=== PATIENT | female | born 1950 | race Caucasian/White ===

== ENCOUNTER 2023-06-08 08:49 | Emergency (ER) | payer MEDICARE, SELFPAY ==
[2023-06-08] VITALS (12 sets, daily range): BP systolic 117–126; BP diastolic 62–79; PULSE 80–82; RESP 16–28; TEMP 36.8; O2SAT 95–100; BMI 19.7
--- NOTE | 2023-06-08 08:55 | DI.RAD.S_ITS ---
PROCEDURE: XR CHEST 1V INDICATIONS: Shortness of breath TECHNIQUE: One view of the chest was acquired. COMPARISON: None. FINDINGS: Surgical changes and devices: Left shoulder arthroplasty. Median sternotomy. Left-sided pacer. Lungs and pleura: Mild diffuse reticulonodular pulmonary opacity. No pleural effusions or pneumothorax. Mediastinum: Mediastinal contours appear normal. Heart size is normal. Bones and chest wall: No suspicious bony lesions. Overlying soft tissues appear unremarkable. IMPRESSION: Mild edema versus atypical pneumonia. Dictated by: Chang Oropeza M.D. on 06/08/2023 at 9:19 Approved by: Chang Oropeza M.D. on 06/08/2023 at 9:19
--- NOTE | 2023-06-08 09:01 | ED_ITS ---
HPI - General Adult General Chief complaint: Shortness of Breath/Dyspnea Stated complaint: hard time breathing Time Seen by Provider: 06/08/23 08:55 Source: patient Mode of arrival: Ambulatory Limitations: no limitations History of Present Illness HPI narrative: 72-year-old female. Is a smoker. States she does have history of CHF. Potentially has a history of COPD. Not on home oxygen. Here for evaluation of 3 days of shortness of breath. No fevers. No cough. No sore throat. No chest pain but does have some upper back pain. No abdominal pain. She is unvaccinated. Did have some swelling last week but took a Lasix and she thinks that that has resolved. Related Data Previous Rx's Medication Instructions Recorded albuterol sulfate 90 mcg/actuation 2 puff inhalation Q4-6H PRN 06/08/23 aerosol inhaler (Proventil HFA) shortness of breath or wheezing #8.5 grams azithromycin 250 mg tablet See Rx Instructions PO .COMPLEX #6 06/08/23 tabs Allergies Allergy/AdvReac Type Severity Reaction Status Date / Time No Known Drug Allergies Allergy Verified 06/08/23 09:08 Review of Systems Constitutional Constitutional: Reports system reviewed and no additional complaints, except as documented Cardiovascular Cardiovascular: Reports system reviewed and no additional complaints, except as documented Respiratory Respiratory: Reports system reviewed and no additional complaints, except as documented Integumentary/Breasts Skin/Breast: Reports system reviewed and no additional complaints, except as documented Neurologic Neurologic: Reports system reviewed and no additional complaints, except as documented Hematologic/Lymphatic On Anticoagulants: No Patient History Medical History (Updated 06/08/23 @ 11:44 by Wyatt Spencer DO) Atrial fibrillation CHF (congestive heart failure) Social History Smoking Status: Current every day smoker Exam Initial Vital Signs Initial Vital Signs: Vital Signs Pulse Rate 82 06/08/23 09:00 Respiratory Rate 16 06/08/23 09:00 Blood Pressure 123/62 06/08/23 09:00 Pulse Oximetry 98 06/08/23 09:00 Oxygen Delivery Method Room Air 06/08/23 09:00 Const General: cooperative, comfortable and No ill appearing HENMT Head: normal to inspection and normocephalic Resp Effort & Inspection: normal respiratory effort, not labored and no respiratory distress Auscultation: clear to auscultation bilaterally Cardio Rate: regular rate GI Inspection: non-distended Skin General: no rashes or lesions noted Neuro General: patient alert, patient awake and moves all extremities Extrem General: capillary refill normal Course Orders Ordered: ED Orders 06/08/23 08:55 XR chest 1V Stat EKG-12 Lead Stat RT Consult Eval and Treat Now 06/08/23 09:16 Covid-19 + FLU A/B + RSV - PCR Stat 06/08/23 09:17 Complete Blood Count AUTO DIFF Stat Comprehensive Metabolic Panel Stat Lipase Stat Magnesium Stat NT-proBNP (BNP-Adult 18+) Stat Troponin & CK Cardiac Panel Stat Discontinued Medications Albuterol (Albuterol 2.5 Mg/3 Ml Neb (Adult)) 2.5 mg INH NOW ONE Stop: 06/08/23 11:05 Last Admin: 06/08/23 11:24 Dose: 2.5 mg Documented By: SAT Furosemide (Furosemide 40 Mg/4 Ml Vial) 40 mg IV NOW ONE Stop: 06/08/23 11:05 Last Admin: 06/08/23 11:25 Dose: 40 mg Documented By: ST Vital Signs Vital signs: Vital Signs - 8 hr 06/08/23 09:00 06/08/23 09:13 06/08/23 09:02 Temperature 98.3 F Pulse Rate 82 80 Respiratory Rate 16 28 H Blood Pressure 123/62 Pulse Oximetry 98 100 Oxygen Delivery Method Room Air 06/08/23 09:30 06/08/23 10:00 06/08/23 11:25 Temperature Pulse Rate 80 80 80 Respiratory Rate 21 24 20 Blood Pressure Pulse Oximetry 100 100 100 Oxygen Delivery Method Room Air Medical Decision Making Lab Data 06/08/23 09:17 06/08/23 09:17 Labs: Lab Results 06/08/23 06/08/23 06/08/23 Range/Units 09:16 09:17 09:17 WBC 6.9 (4.5-11.0) X10^3/uL RBC 4.16 (4.0-5.2) X10^6/uL Hgb 11.0 L (12.0-16.0) g/dL Hct 33.6 L (36-46) % MCV 80.7 (80-100) fL MCH 26.4 (26-34) PG MCHC 32.6 (30-36) % RDW 16.9 H (11.6-14.8) % Plt Count 195 (150-400) X10^3/uL Neut % (Auto) 66.5 (50-75) % Lymph % (Auto) 20.2 L (25-40) % [place] % (Auto) 9.4 (3-14) % Eos % (Auto) 2.6 (2-4) % Baso % (Auto) 1.3 (0-2) % Neut # (Auto) 4600 (1362-0296) /uL Lymph # (Auto) 1400 (3077-8351) /uL [place] # (Auto) 600 (0-900) /uL Eos # (Auto) 200 (0-450) /uL Baso # (Auto) 100 (0-100) /uL Sodium 138 (137-145) mmol/L Potassium 3.3 L (3.4-5.1) mmol/L Chloride 104 (98-107) mmol/L Carbon Dioxide 25 (22-32) mmol/L BUN 20 H (7-17) mg/dL Creatinine 0.97 (0.52-1.04) mg/dL Estimated GFR > 60 (>60) mL/min BUN/Creatinine Ratio 20.6 (6-22) Glucose 161 H (80-110) mg/dL Calcium 9.4 (8.4-10.2) mg/dL Magnesium 2.0 (1.6-2.3) mg/dL Total Bilirubin 1.2 (0.2-1.3) mg/dL AST 35 (14-36) IU/L ALT 20 (<35) IU/L Alkaline Phosphatase 77 (38-126) U/L Total Creatine Kinase (30-135) U/L Troponin I (0.01-0.034) ng/mL NT-Pro-B Natriuret Pep (<125) pg/mL Total Protein 6.7 (6.3-8.2) g/dL Albumin 3.8 (3.5-5.0) g/dL Globulin 2.9 (1.7-4.1) g/dL Albumin/Globulin Ratio 1.3 (1.0-2.8) Lipase 148 (23-300) U/L SARS-CoV-2 (PCR) Negative (Negative) Influenza A (RT-PCR) Flu a negative (NEGATIVE) Influenza B (RT-PCR) Flu b negative (NEGATIVE) RSV (PCR) Negative (Negative) 06/08/23 Range/Units 09:17 WBC (4.5-11.0) X10^3/uL RBC (4.0-5.2) X10^6/uL Hgb (12.0-16.0) g/dL Hct (36-46) % MCV (80-100) fL MCH (26-34) PG MCHC (30-36) % RDW (11.6-14.8) % Plt Count (150-400) X10^3/uL Neut % (Auto) (50-75) % Lymph % (Auto) (25-40) % [place] % (Auto) (3-14) % Eos % (Auto) (2-4) % Baso % (Auto) (0-2) % Neut # (Auto) (3562-4067) /uL Lymph # (Auto) (1719-7208) /uL [place] # (Auto) (0-900) /uL Eos # (Auto) (0-450) /uL Baso # (Auto) (0-100) /uL Sodium (137-145) mmol/L Potassium (3.4-5.1) mmol/L Chloride (98-107) mmol/L Carbon Dioxide (22-32) mmol/L BUN (7-17) mg/dL Creatinine (0.52-1.04) mg/dL Estimated GFR (>60) mL/min BUN/Creatinine Ratio (6-22) Glucose (80-110) mg/dL Calcium (8.4-10.2) mg/dL Magnesium (1.6-2.3) mg/dL Total Bilirubin (0.2-1.3) mg/dL AST (14-36) IU/L ALT (<35) IU/L Alkaline Phosphatase (38-126) U/L Total Creatine Kinase 35 (30-135) U/L Troponin I 0.019 (0.01-0.034) ng/mL NT-Pro-B Natriuret Pep 9540 H (<125) pg/mL Total Protein (6.3-8.2) g/dL Albumin (3.5-5.0) g/dL Globulin (1.7-4.1) g/dL Albumin/Globulin Ratio (1.0-2.8) Lipase (23-300) U/L SARS-CoV-2 (PCR) (Negative) Influenza A (RT-PCR) (NEGATIVE) Influenza B (RT-PCR) (NEGATIVE) RSV (PCR) (Negative) Imaging Data Chest x-ray: Radiologist's Impression: PROCEDURE:? XR CHEST 1V ? INDICATIONS:? Shortness of breath ? TECHNIQUE:? One view of the chest was acquired.? ? COMPARISON:? None. ? FINDINGS:? ? Surgical changes and devices:? Left shoulder arthroplasty.? Median sternotomy.? Left-sided pacer. ? Lungs and pleura:? Mild diffuse reticulonodular pulmonary opacity.? No pleural effusions or pneumothorax.? ? Mediastinum:? Mediastinal contours appear normal.? Heart size is normal.? ? Bones and chest wall:? No suspicious bony lesions.? Overlying soft tissues appear unremarkable.? ? ? IMPRESSION:? Mild edema versus atypical pneumonia. ECG Data Attestation: I personally reviewed and interpreted this ECG as follows: Interpretation: Sinus rhythm Ventricular rate 80 QRS [address] T wave changes MDM Narrative Medical decision making narrative: Chest x-ray does show pneumonia. Her BNP is also elevated. She is taking her furosemide every couple days because she states it ?makes my kidneys hurt? she also feels somewhat better after the albuterol inhaler. Her COVID was negative. Plan will be to start her on antibiotics. Will have her take her Lasix at home on a daily basis for the next couple days and refill her albuterol inhaler. She was given return precautions. She expressed understanding and agreement. Discharge Plan Departure Patient Disposition: Home Clinical Impression: Pneumonia, CHF (congestive heart failure) Instructions: DI for Heart Failure, DI for Pneumonia -- Adult Activity Restrictions/Additional Instructions: I do recommend that you take your Lasix/furosemide on a daily basis for the next couple days. Also take the antibiotics as directed. Contact your primary doctor for a follow-up. Return to the emergency department for new or worsening symptoms. Prescriptions: New albuterol sulfate [Proventil HFA] 90 mcg/actuation HFA aerosol inhaler 2 puff inhalation Q4-6H PRN (Reason: shortness of breath or wheezing) Qty: 8.5 0RF azithromycin 250 mg tablet See Rx Instructions .ROUTE .COMPLEX Qty: 6 0RF Rx Instructions: For 250 mg dose pack: take 500 mg today (day 1), then 250 mg for 4 days (days 2-5) Referrals: Archie Torres DO [Primary Care Provider] - Stand Alone Forms: Patient Portal/API
[2023-06-08 09:30] LABS: Add Manual Diff / Slide Review NO; Basophils Absolute Auto 100 /uL (0-100); Basophils Percent Auto 1.3 % (0-2); Eosinophils Absolute Auto 200 /uL (0-450); Eosinophils Percent Auto 2.6 % (2-4); Hematocrit 33.6 % (36-46); Lymphocytes Absolute Auto 1400 /uL (1100-4500); Lymphocytes Percent Auto 20.2 % (25-40); Mean Corpuscular HGB Conc 32.6 % (30-36); Mean Corpuscular Hemoglobin 26.4 PG (26-34); Mean Corpuscular Volume 80.7 fL (80-100); Monocytes Absolute Auto 600 /uL (0-900); Monocytes Percent Auto 9.4 % (3-14); Neutrophils Absolute Auto 4600 /uL (1500-7000); Neutrophils Percent Auto 66.5 % (50-75); Platelet Count 195 X10^3/uL (150-400); Red Blood Cell Count 4.16 X10^6/uL (4.0-5.2); Red Cell Distribution Width 16.9 % (11.6-14.8); White Blood Cell Count 6.9 X10^3/uL (4.5-11.0)
[2023-06-08 09:48] LABS: Creatine Kinase 35 U/L (30-135)
[2023-06-08 09:51] LABS: Alanine Aminotransferase 20 IU/L (<35); Albumin 3.8 g/dL (3.5-5.0); Albumin Globulin Ratio 1.3 (1.0-2.8); Alkaline Phosphatase 77 U/L (38-126); Aspartate Aminotransferase 35 IU/L (14-36); BUN Creatinine Ratio 20.6 (6-22); Bilirubin Total 1.2 mg/dL (0.2-1.3); Blood Urea Nitrogen 20 mg/dL (7-17); Calcium 9.4 mg/dL (8.4-10.2); Carbon Dioxide 25 mmol/L (22-32); Chloride 104 mmol/L (98-107); Estimated Glomerular Filt Rate > 60 mL/min (>60); Globulin 2.9 g/dL (1.7-4.1); Glucose 161 mg/dL (80-110); HEMOLYSIS < 15 (0-50); Lipase 148 U/L (23-300); Potassium 3.3 mmol/L (3.4-5.1); Sodium 138 mmol/L (137-145); Total Protein 6.7 g/dL (6.3-8.2)
[2023-06-08 10:01] LABS: NT-proBNP (BNP-Adult 18+) 9540 pg/mL (<125); Troponin I 0.019 ng/mL (0.01-0.034)
[2023-06-08 11:04] LABS: COVID-19 CEPHEID 4-PLEX PCR Negative (Negative); Influenza A - CEPHEID Flu A NEGATIVE (NEGATIVE); Influenza B - CEPHEID Flu B NEGATIVE (NEGATIVE); Respiratory Syncytial Virus Negative (Negative)
[2023-06-08] MEDS: ALBUTEROL 2.5 MG/3 ML NEB (ADULT) INH (11:24)
[2023-06-08] MEDS: FUROSEMIDE 40 MG/4 ML VIAL IV (11:25)
== END 2023-06-08 12:27 | disposition home or self-care (01) ==
PROVIDERS: Emergency Provider Emergency Medicine; PCP Internal Medicine
DX: J18.9 Pneumonia, unspecified organism (principal); I50.9 Heart failure, unspecified; M54.6 Pain in thoracic spine; Z79.01 Long term (current) use of anticoagulants; Z20.822 Contact with and (suspected) exposure to COVID-19
CPT/HCPCS: 0241U; 71045; 80053; 82550; 83690; 83735; 83880; 84484; 85025; 93005; 94640; 96374; 99284; J1940; J7613

== ENCOUNTER 2023-07-05 10:44 | Emergency (ER) | payer MEDICARE, MEDICAID, SELFPAY ==
[2023-07-05] VITALS (7 sets, daily range): BP systolic 134–145; BP diastolic 82–87; PULSE 80–88; RESP 16–222; TEMP 36.8; O2SAT 95–100; BMI 22.3
--- NOTE | 2023-07-05 10:57 | DI.RAD.S_ITS ---
PROCEDURE: XR CHEST 1V INDICATIONS: Short of breath TECHNIQUE: One view of the chest was acquired. COMPARISON: [facility], CR, XR CHEST 1V, 06/08/2023, 9:01. FINDINGS: Surgical changes and devices: A pacer device is seen. The leads are seen in stable positions. Sternotomy wires are seen. Left shoulder arthroplasty hardware is seen. Lungs and pleura: Low lung volumes are noted. This causes a crowded appearance to the lung markings and limits evaluation. Generalized interstitial prominence can be seen. There are small bilateral pleural effusions, left larger than right. Mediastinum: Mediastinal contours appear normal. Heart size is mildly to moderately enlarged. Atherosclerotic calcification of the aortic arch is noted. Bones and chest wall: No suspicious bony lesions. Age-appropriate bony degenerative changes are seen. Overlying soft tissues appear unremarkable. IMPRESSION: Cardiomegaly with pulmonary interstitial prominence and pleural effusions. CHF is suspected. Postoperative and degenerative changes are seen. Dictated by: Jac Barriga M.D. on 07/05/2023 at 10:28 Approved by: Jac Barriga M.D. on 07/05/2023 at 10:29
--- NOTE | 2023-07-05 10:58 | ED.GENADULT ---
HPI - General Adult General Chief complaint: Shortness of Breath/Dyspnea Stated complaint: Difficulty Breathing, weak, dizzy Time Seen by Provider: 07/05/23 10:57 History of Present Illness HPI narrative: 73-year-old female smoker with history of COPD, AFib, pacemaker placed a few months ago in [place], congestive heart failure, hypertension, hyperlipidemia presents with a family friend and a chief complaint of worsening shortness of breath over the past few days and worsening generalized weakness. She states that she is short of breath with exertion and also with lying flat. She denies much in the way of cough and has had no fever or chills. She is not dizzy but is generally weak. She denies nausea or vomiting, she admits to having a poor appetite and just generally feels unwell. She denies abdominal pain or diarrhea. She has no urinary complaints such as dysuria, frequency or urgency. She lives at home with family and does not routinely use oxygen. She denies any weight gain or lower extremity pain, redness or swelling. Related Data Previous Rx's Medication Instructions Recorded albuterol sulfate 90 mcg/actuation 2 puff inhalation Q4-6H PRN 06/08/23 aerosol inhaler (Proventil HFA) shortness of breath or wheezing #8.5 grams azithromycin 250 mg tablet See Rx Instructions PO .COMPLEX #6 06/08/23 tabs cephalexin 500 mg capsule 500 mg PO Q6H 7 days #28 caps 07/05/23 furosemide 40 mg tablet (Lasix) 40 mg PO DAILY #5 tabs 07/05/23 prednisone 20 mg tablet 20 mg PO DAILY #5 tabs 07/05/23 Allergies Allergy/AdvReac Type Severity Reaction Status Date / Time trazodone Allergy Suicidal Verified 07/05/23 10:59 ideation SSRI Allergy Suicidal Uncoded 07/05/23 10:59 Ideation Review of Systems Review of Systems Narrative: GENERAL: D see HPI HEENT: Denies sinus pain, ear pain, sore throat, difficulty swallowing, dizziness. RESPIRATORY: See HPI CARDIOVASCULAR: See HPI GASTROINTESTINAL: Denies nausea, vomiting, abdominal pain, diarrhea, constipation, melena. : Denies dysuria, frequency, incontinence, hematuria, urinary retention. MUSCULOSKELETAL: denies weakness, joint pain, or bony pain SKIN: Denies rash, skin lesions, or other NEUROLOGIC: Denies weakness, headache, numbness, change in speech, confusion, seizures, incoordination. PSYCHIATRIC: No concerning psychosocial issues. 12 point review of systems is negative except for those stated above Patient History Medical History CHF (congestive heart failure) Atrial fibrillation Social History Smoking Status: Current every day smoker Smoking Status: Current every day smoker tobacco type: cigarettes alcohol intake frequency: 0-2 drinks per day Substance Use Type: does not use Exam Narrative Exam Narrative: GENERAL: [73] year old patient appears older than stated age. Significantly weak, requires assistance getting from wheelchair to cart. HEAD: Atraumatic. Normocephalic. EYES: Pupils equal round and reactive. Extraocular motions intact. No scleral icterus. No injection or drainage. ENT: Dry mucous membranes Nose without bleeding, purulent drainage. Throat without erythema, tonsillar hypertrophy or exudate. Airway patent. NECK: Trachea midline. Non tender CARDIOVASCULAR: Regular rate and rhythm without murmurs, gallops, or rubs. RESPIRATORY: Decreased lung sounds throughout with prolonged expiratory phase, no obvious wheals, rales or rhonchi GASTROINTESTINAL: Abdomen soft, non-tender, nondistended. EXTREMITIES: No edema or joint tenderness. BACK: Nontender without deformity or crepitance. No flank tenderness. NEURO: AOx3. SKIN: No rash or erythema of visible areas Initial Vital Signs Initial Vital Signs: Vital Signs Pulse Rate 85 07/05/23 10:59 Respiratory Rate 20 07/05/23 10:59 Blood Pressure 145/87 H 07/05/23 10:59 Pulse Oximetry 98 07/05/23 10:59 Oxygen Delivery Method Room Air 07/05/23 10:59 Course Orders Ordered: ED Orders 07/05/23 10:57 Chest [XR chest 1V] Stat 07/05/23 11:33 EKG-12 Lead Stat 07/05/23 11:35 Complete Blood Count AUTO DIFF Stat Comprehensive Metabolic Panel Stat D Dimer Stat Lactate (Lactic Acid) Stat Magnesium Stat NT-proBNP (BNP-Adult 18+) Stat Procalcitonin Stat Troponin & CK Cardiac Panel Stat 07/05/23 11:45 Respiratory Panel (Film Array) Stat 07/05/23 12:05 Blood Culture Stat 07/05/23 12:07 CT angio chest PE protocol Stat 07/05/23 13:25 Urine Microscopic Stat Discontinued Medications Albuterol/Ipratropium (Albuterol/Ipratropium 3 Ml Ampul) 3 ml INH NOW ONE Stop: 07/05/23 10:58 Last Admin: 07/05/23 11:25 Dose: 3 ml Documented By: SAT Furosemide (Furosemide 40 Mg/4 Ml Vial) 40 mg IV NOW ONE Stop: 07/05/23 12:21 Last Admin: 07/05/23 13:02 Dose: 40 mg Documented By: RB Methylprednisolone (Methylprednisolone 125 Mg/2 Ml Vial) 125 mg IV NOW ONE Stop: 07/05/23 10:58 Last Admin: 07/05/23 11:48 Dose: 125 mg Documented By: RB Vital Signs Vital signs: Vital Signs - 8 hr 07/05/23 10:59 07/05/23 11:03 07/05/23 11:30 Temperature 98.2 F Pulse Rate 85 80 Respiratory Rate 20 222 H Blood Pressure 145/87 H Pulse Oximetry 98 99 Oxygen Delivery Method Room Air Room Air 07/05/23 12:19 07/05/23 13:49 Temperature Pulse Rate 80 87 Respiratory Rate 16 Blood Pressure 138/82 Pulse Oximetry 100 95 Oxygen Delivery Method Room Air Medical Decision Making Lab Data 07/05/23 11:35 07/05/23 11:35 Labs: Lab Results 07/05/23 07/05/23 Range/Units 11:35 11:45 WBC 7.3 (4.5-11.0) X10^3/uL RBC 4.52 (4.0-5.2) X10^6/uL Hgb 11.5 L (12.0-16.0) g/dL Hct 35.4 L (36-46) % MCV 78.5 L (80-100) fL MCH 25.4 L (26-34) PG MCHC 32.4 (30-36) % RDW 16.5 H (11.6-14.8) % Plt Count 210 (150-400) X10^3/uL Neut % (Auto) 63.9 (50-75) % Lymph % (Auto) 26.7 (25-40) % [place] % (Auto) 7.6 (3-14) % Eos % (Auto) 1.3 L (2-4) % Baso % (Auto) 0.5 (0-2) % Neut # (Auto) 4700 (8138-1674) /uL Lymph # (Auto) 1900 (9080-8005) /uL [place] # (Auto) 600 (0-900) /uL Eos # (Auto) 100 (0-450) /uL Baso # (Auto) 0 (0-100) /uL D-Dimer 2495 H (<500) ng/ml Sodium 137 (137-145) mmol/L Potassium 4.1 (3.4-5.1) mmol/L Chloride 105 (98-107) mmol/L Carbon Dioxide 23 (22-32) mmol/L BUN 14 (7-17) mg/dL Creatinine 1.03 (0.52-1.04) mg/dL Estimated GFR 58 L (>60) mL/min BUN/Creatinine Ratio 13.6 (6-22) Glucose 98 (80-110) mg/dL Lactate 1.6 (0.7-2.1) mmol/L Calcium 9.7 (8.4-10.2) mg/dL Magnesium 1.9 (1.6-2.3) mg/dL Total Bilirubin 0.9 (0.2-1.3) mg/dL AST 26 (14-36) IU/L ALT 13 (<35) IU/L Alkaline Phosphatase 72 (38-126) U/L Total Creatine Kinase 30 (30-135) U/L Troponin I 0.019 (0.01-0.034) ng/mL NT-Pro-B Natriuret Pep 94816 H (<125) pg/mL Total Protein 7.1 (6.3-8.2) g/dL Albumin 4.0 (3.5-5.0) g/dL Globulin 3.1 (1.7-4.1) g/dL Albumin/Globulin Ratio 1.3 (1.0-2.8) Procalcitonin 0.05 (<0.5) ng/mL Chlamy pneumoniae PCR Not detected (Not Detect) Adenovirus (PCR) Not detected (Not Detect) B.parapertussis DNA PCR Not detected (Not Detecte) Coronavirus OC43 (PCR) Not detected (Not Detect) Coronavirus HKU1 (PCR) Not detected (Not Detect) Coronavirus 229E (PCR) Not detected (Not Detect) SARS-CoV-2 (PCR) Not detected (Not Detecte) Coronavirus NL63 (PCR) Not detected (Not Detect) Human Metapneumovir PCR Not detected (Not Detect) Influenza A (H1) PCR Not detected (Not Detect) Influenza A (PCR) Not detected (Not Detect) Influenza A (H3) PCR Not detected (Not Detect) Influenza Type A (PCR) Not detected (Not Detect) Influenza Type B (PCR) Not detected (Not Detect) M. pneumoniae (PCR) Not detected (Not Detect) Parainfluenza 1 (PCR) Not detected (Not Detect) Parainfluenza 2 (PCR) Not detected (Not Detect) Parainfluenza 3 (PCR) Not detected (Not Detect) Parainfluenza 4 (PCR) Not detected (Not Detect) RSV (PCR) Not detected (Not Detect) Entero/Rhino (PCR) Not detected (Not Detect) Urine Dip Bedside Urine Glucose Negative Bedside Urine Bilirubin - Negative Bedside Urine Ketone - Negative Urine Specific [place] 1.010 Bedside Urine Occult Blood - Negative Bedside Urine pH 6.0 Bedside Urine Protein - Negative Bedside Urine Urobilinogen - Negative Bedside Urine Nitrite - Negative Bedside Urine Leukocytes +/- 15 Esterase Point of care testing: Urine Dip Bedside Urine Glucose Negative Bedside Urine Bilirubin - Negative Bedside Urine Ketone - Negative Urine Specific [place] 1.010 Bedside Urine Occult Blood - Negative Bedside Urine pH 6.0 Bedside Urine Protein - Negative Bedside Urine Urobilinogen - Negative Bedside Urine Nitrite - Negative Bedside Urine Leukocytes +/- 15 Esterase MDM Narrative Medical decision making narrative: CC: 73-year-old female with shortness of breath and fatigue Complicating co-morbidities: Age, COPD, prior stroke, AFib, recent pacemaker, recent travel, CHF Data collected from: Patient Medical records reviewed: Prior notes reviewed in our EMR Differential considered, but not limited to: Pneumonia versus COPD exacerbation versus viral upper respiratory infection versus pulmonary embolism versus cardiac ischemia versus CHF versus other Exam documented above, pertinent findings include: Fatigued, appears unwell, some increased work of breathing, no obvious abnormal lung sounds or hypoxemia. Lab Test results independently reviewed as above. Pertinent findings: Independently reviewed EKG as above Imaging studies independently reviewed: Chest CT angiogram is negative for PE, there are small bilateral pleural effusions with interstitial prominence and CHF is suspected, no signs of a focal infiltrate Treatments: DuoNeb, Solu-Medrol, Lasix Re-evaluations: Patient feels significant improvement after above-stated therapies, she is ambulatory in the department and able to make it to the bathroom, she is no longer conversationally dyspneic, no oxygen requirements Discussion: 73-year-old female presents with family in the chief complaint of worsening shortness of breath for the past few days. Multiple diagnoses considered as noted above. She has had no fever, no signs of infiltrate on imaging, pneumonia thought unlikely. She does complain of exertional dyspnea and orthopnea though she has no weight gain or lower extremity swelling, the crackles in her bases, imaging, labs are all suggestive of a CHF exacerbation. Her D-dimer is well above the cutoff, CT angiogram is performed but shows no evidence of clot. She is improved after above-stated therapies, has no oxygen requirements and is ambulatory in the department, no signs of sepsis. Antibiotics for a UTI, steroids and a few days of diuretics sent to her pharmacy of choice. Return precautions discussed Disposition: see below, along with detailed discharge instructions that have been reviewed with patient as well as indications for ED re-evaluation and additional outpatient follow up Discharge Plan Departure Patient Disposition: Home Clinical Impression: Acute exacerbation of CHF (congestive heart failure), Acute exacerbation of chronic obstructive pulmonary disease, Acute UTI Instructions: Chronic Obstructive Pulmonary Disease, DI for Heart Failure, DI for Urinary Tract Infection (UTI) Activity Restrictions/Additional Instructions: *You have been diagnosed with [acute exacerbation of CHF and acute exacerbation of COPD with mild urinary tract infection. As we discussed there is no evidence of pneumonia, your respiratory panel was negative for flu, COVID and other typical respiratory infections. CT scan suggest against the likelihood of any blood clot in your chest] *What to do: *Please continue to take your regular medications as directed. [ x] New medication prescriptions sent to your pharmacy: [[facility] ] [ ] New medication written as a paper prescription [ ] No new medications given *Please follow up with your primary care provider in 2-3 days, call for an appointment. Let them know you were seen in the Emergency Department and that we ask that you be seen in follow up. We will electronically transmit a record of today's note if your PCP is in our system *If you do not have a primary care provider please contact the [facility] Resource line at [phone]. They will ask some questions about your medical history and help get you set up with a doctor in the community. *Return to Emergency Department if you should have any new, worsening or concerning symptoms, such as [fever greater than 101 F, shaking chills, worsening pain, persistent vomiting or other bothersome symptoms] Prescriptions: New prednisone 20 mg tablet 20 mg PO DAILY Qty: 5 0RF Rx Instructions: administer with food or milk cephalexin 500 mg capsule 500 mg PO Q6H 7 Days Qty: 28 0RF furosemide [Lasix] 40 mg tablet 40 mg PO DAILY Qty: 5 0RF No Action albuterol sulfate [Proventil HFA] 90 mcg/actuation HFA aerosol inhaler 2 puff inhalation Q4-6H PRN (Reason: shortness of breath or wheezing) Qty: 8.5 0RF azithromycin 250 mg tablet See Rx Instructions .ROUTE .COMPLEX Qty: 6 0RF Rx Instructions: For 250 mg dose pack: take 500 mg today (day 1), then 250 mg for 4 days (days 2-5) Referrals: Archie Torres DO [Primary Care Provider] - Stand Alone Forms: Patient Portal/API
[2023-07-05] MEDS: ALBUTEROL/IPRATROPIUM 3 ML AMPUL INH (11:25)
[2023-07-05 11:47] LABS: Add Manual Diff / Slide Review NO; Basophils Absolute Auto 0 /uL (0-100); Basophils Percent Auto 0.5 % (0-2); Eosinophils Absolute Auto 100 /uL (0-450); Eosinophils Percent Auto 1.3 % (2-4); Hematocrit 35.4 % (36-46); Hemoglobin 11.5 g/dL (12.0-16.0); Lymphocytes Absolute Auto 1900 /uL (1100-4500); Lymphocytes Percent Auto 26.7 % (25-40); Mean Corpuscular HGB Conc 32.4 % (30-36); Mean Corpuscular Hemoglobin 25.4 PG (26-34); Mean Corpuscular Volume 78.5 fL (80-100); Monocytes Absolute Auto 600 /uL (0-900); Monocytes Percent Auto 7.6 % (3-14); Neutrophils Absolute Auto 4700 /uL (1500-7000); Neutrophils Percent Auto 63.9 % (50-75); Platelet Count 210 X10^3/uL (150-400); Red Blood Cell Count 4.52 X10^6/uL (4.0-5.2); Red Cell Distribution Width 16.5 % (11.6-14.8); White Blood Cell Count 7.3 X10^3/uL (4.5-11.0)
[2023-07-05] MEDS: methylPREDNISolone 125 MG/2 ML VIAL IV (11:48)
[2023-07-05 11:51] LABS: D Dimer 2495 ng/ml (<500)
[2023-07-05 11:54] LABS: Alanine Aminotransferase 13 IU/L (<35); Albumin Globulin Ratio 1.3 (1.0-2.8); Alkaline Phosphatase 72 U/L (38-126); Aspartate Aminotransferase 26 IU/L (14-36); BUN Creatinine Ratio 13.6 (6-22); Bilirubin Total 0.9 mg/dL (0.2-1.3); Blood Urea Nitrogen 14 mg/dL (7-17); Calcium 9.7 mg/dL (8.4-10.2); Carbon Dioxide 23 mmol/L (22-32); Chloride 105 mmol/L (98-107); Creatine Kinase 30 U/L (30-135); Estimated Glomerular Filt Rate 58 mL/min (>60); Globulin 3.1 g/dL (1.7-4.1); Glucose 98 mg/dL (80-110); HEMOLYSIS < 15 (0-50); Magnesium 1.9 mg/dL (1.6-2.3); Potassium 4.1 mmol/L (3.4-5.1); Sodium 137 mmol/L (137-145); Total Protein 7.1 g/dL (6.3-8.2)
[2023-07-05 11:55] LABS: Lactate (Lactic Acid) 1.6 mmol/L (0.7-2.1)
[2023-07-05 12:06] LABS: NT-proBNP (BNP-Adult 18+) 12500 pg/mL (<125); Troponin I 0.019 ng/mL (0.01-0.034)
--- NOTE | 2023-07-05 12:07 | DI.CT.S_ITS ---
PROCEDURE: CT ANGIO CHEST PE PROTOCOL INDICATIONS: cough, short of breath, travel, recent surgery, critical dimer TECHNIQUE: After the administration of intravenous contrast, 2 mm thick sections acquired from the pulmonary apices to the posterior costophrenic angles. 3-dimensional maximum intensity projection (MIP) coronal and sagittal reformats were then acquired through the thorax. For radiation dose reduction, the following was used: automated exposure control, adjustment of mA and/or kV according to patient size. COMPARISON: [facility], CR, XR CHEST 1V, 07/05/2023, 10:56. FINDINGS: Image quality: There is artifact associated with the metallic hardware. Pulmonary arteries: Pulmonary arteries are normal in size, and demonstrate no intraluminal filling defects to suggest central pulmonary embolism. Lungs and pleura: There is a small to moderate right-sided and a small left-sided pleural effusion. Fluid can be seen along the left oblique fissure. Presumed atelectasis can be seen overlying the pleural effusions. Mild generalized interstitial prominence can be seen. No pneumothorax is seen. Mediastinum: Heart size is moderately enlarged, without pericardial effusion. No mediastinal or hilar adenopathy. Thoracic aorta is normal in caliber and enhancement. Esophagus is normal in caliber, without hiatal hernia. Bones and chest wall: No suspicious bony lesions. Ribs and thoracic spine appear intact throughout. Left shoulder arthroplasty hardware is seen. Age-appropriate bony degenerative changes are seen. Accentuated thoracic kyphosis is seen. Thyroid gland demonstrates no significant abnormality. No axillary or supraclavicular adenopathy. There is a left-sided pacer device. Sternotomy wires are seen. Abdomen: Cholecystectomy clips are seen. There is reflux of contrast seen into the inferior vena cava and into the hepatic veins. The visualized portions of the upper abdominal structures are otherwise unremarkable for imaging technique. IMPRESSION: Negative for pulmonary embolism. Cardiomegaly with bilateral pleural effusions and interstitial prominence. CHF is suspected. Additional findings: Left shoulder arthroplasty hardware Left-sided pacer device Sternotomy change Cholecystectomy Dictated by: Jac Barriga M.D. on 07/05/2023 at 11:58 Approved by: Jac Barriga M.D. on 07/05/2023 at 12:02
[2023-07-05 12:11] LABS: Procalcitonin 0.05 ng/mL (<0.5)
--- NOTE | 2023-07-05 12:33 | PC.NURSE ---
Patient left department with seismology technical officer.
[2023-07-05 12:39] LABS: Adenovirus Not Detected (Not Detect); Coronavirus 229E Not Detected (Not Detect); Coronavirus HKU1 Not Detected (Not Detect); Coronavirus NL 63 Not Detected (Not Detect); Coronavirus OC43 Not Detected (Not Detect); Human Metapneumovirus Not Detected (Not Detect); Human Rhinovirus/Enterovirus Not Detected (Not Detect); SARS- CoV-2 Not Detected (Not Detecte)
[2023-07-05 12:40] LABS: B. parapertussis Not Detected (Not Detecte); Bordetella pertussis Not Detected (Not Detect); Chlamydophila pneumoniae Not Detected (Not Detect); Influenza A Not Detected (Not Detect); Influenza A H1 Not Detected (Not Detect); Influenza A H3 Not Detected (Not Detect); Influenza A(No subj detected) Not Detected (Not Detect); Influenza B Not Detected (Not Detect); Mycoplasma pneumoniae Not Detected (Not Detect); Parainfluenza Virus 1 Not Detected (Not Detect); Parainfluenza Virus 2 Not Detected (Not Detect); Parainfluenza Virus 3 Not Detected (Not Detect); Parainfluenza Virus 4 Not Detected (Not Detect); Respiratory Syncytial Virus Not Detected (Not Detect)
[2023-07-05] MEDS: FUROSEMIDE 40 MG/4 ML VIAL IV (13:02)
[2023-07-05 14:47] LABS: Bacteria Urine Occasional (0-1); RBC Urine 0-1/HPF (0-5/HPF); Squamous Epithelial Cell Urine 1-5 /HPF (0-5/HPF); WBC Urine 1-5/HPF (0-5/HPF)
[2023-07-05 14:48] LABS: Culture Indicated Urine Specimen Cultured
== END 2023-07-05 14:05 | disposition home or self-care (01) ==
PROVIDERS: Emergency Provider Emergency Medicine; PCP Internal Medicine
DX: I50.9 Heart failure, unspecified (principal); J44.1 Chronic obstructive pulmonary disease with (acute) exacerbation; N39.0 Urinary tract infection, site not specified
CPT/HCPCS: 36415; 71045; 71275; 80053; 81003; 81015; 82550; 83605; 83735; 83880; 84145; 84484; 85025; 85379; 87040; 87086; 87633; 93005; 94640; 96374; 96375; 99284; J1940; J2930; Q9967

== ENCOUNTER 2023-07-25 00:29 | Emergency (ER) | payer MEDICARE, MEDICAID, SELFPAY ==
[2023-07-25 00:39] VITALS: BP 128/77; PULSE 82
[2023-07-25 00:41] VITALS: BP 128/77; PULSE 79; RESP 16; TEMP 36.4; O2SAT 100; BMI 21.4
--- NOTE | 2023-07-25 00:47 | ED.EXTPRO ---
HPI - Extremity Problem General Chief complaint: Extremity Problem,Nontraumatic Stated complaint: hurting all over can't lift arm and legs Time Seen by Provider: 07/25/23 00:32 Source: patient and other Mode of arrival: Wheelchair History of Present Illness HPI Narrative: 73-year-old female who is here for evaluation of several days pain in her arms and her legs. Difficulty walking. Pain with lifting her arms. She saw her primary doctor today and was taken off of her statin as there was some concern that maybe this was causing the muscle pain. She states she is not had any improvement. She is been taking Tylenol and gabapentin It is both forearms and both of her legs. It was equal both sides. Related Data Previous Rx's Medication Instructions Recorded albuterol sulfate 90 mcg/actuation 2 puff inhalation Q4-6H PRN 06/08/23 aerosol inhaler (Proventil HFA) shortness of breath or wheezing #8.5 grams azithromycin 250 mg tablet See Rx Instructions PO .COMPLEX #6 06/08/23 tabs furosemide 40 mg tablet (Lasix) 40 mg PO DAILY #5 tabs 07/05/23 prednisone 20 mg tablet 20 mg PO DAILY #5 tabs 07/05/23 Allergies Allergy/AdvReac Type Severity Reaction Status Date / Time trazodone Allergy Suicidal Verified 07/05/23 10:59 ideation SSRI Allergy Suicidal Uncoded 07/05/23 10:59 Ideation Review of Systems Constitutional Constitutional: Reports system reviewed and no additional complaints, except as documented Musculoskeletal Musculoskeletal: Reports system reviewed and no additional complaints, except as documented Integumentary/Breasts Skin/Breast: Reports system reviewed and no additional complaints, except as documented Neurologic Neurologic: Reports system reviewed and no additional complaints, except as documented Patient History Medical History CHF (congestive heart failure) Atrial fibrillation Social History Smoking Status: Current every day smoker Smoking Status: Current every day smoker tobacco type: cigarettes alcohol intake frequency: 0-2 drinks per day Substance Use Type: does not use Exam Initial Vital Signs Initial Vital Signs: Vital Signs Pulse Rate 82 07/25/23 00:39 Blood Pressure 128/77 07/25/23 00:39 Const General: cooperative and No ill appearing Skin General: no rashes or lesions noted Neuro Speech: speech normal Extrem Other: No gross deformities. Tenderness to palpation throughout her bilateral upper and lower extremities. No lower extremity swelling. Course Orders Ordered: ED Orders 07/25/23 01:05 CK [Creatine Kinase] Stat Complete Blood Count AUTO DIFF Stat Comprehensive Metabolic Panel Stat Discontinued Medications Hydrocodone Bitart/Acetaminophen (Hydrocodone/Acet 5/325 Tablet) 1 tab PO NOW ONE Stop: 07/25/23 00:48 Last Admin: 07/25/23 01:10 Dose: 1 tab Documented By: WENDI Ketorolac Tromethamine (Ketorolac 30 Mg/Ml Vial) 30 mg IV NOW ONE Stop: 07/25/23 00:48 Last Admin: 07/25/23 01:09 Dose: 30 mg Documented By: WENDI Vital Signs Vital signs: Vital Signs - 8 hr 07/25/23 00:39 07/25/23 00:39 07/25/23 00:41 Temperature 97.5 F L Pulse Rate 82 79 Respiratory Rate 16 Blood Pressure 128/77 128/77 Pulse Oximetry 100 Oxygen Delivery Method Room Air 07/25/23 01:00 07/25/23 01:15 07/25/23 01:15 Temperature Pulse Rate 80 80 Respiratory Rate Blood Pressure 129/81 Pulse Oximetry 100 100 Oxygen Delivery Method Room Air Room Air 07/25/23 01:30 07/25/23 01:30 Temperature Pulse Rate 80 Respiratory Rate Blood Pressure 117/72 Pulse Oximetry 99 Oxygen Delivery Method Room Air MDM - Extremity (Nontraumatic) Lab Data 07/25/23 01:05 07/25/23 01:05 Labs: Lab Results 07/25/23 Range/Units 01:05 WBC 9.9 (4.5-11.0) X10^3/uL RBC 4.64 (4.0-5.2) X10^6/uL Hgb 11.5 L (12.0-16.0) g/dL Hct 35.7 L (36-46) % MCV 77.1 L (80-100) fL MCH 24.8 L (26-34) PG MCHC 32.1 (30-36) % RDW 16.8 H (11.6-14.8) % Plt Count 217 (150-400) X10^3/uL Neut % (Auto) 62.3 (50-75) % Lymph % (Auto) 24.8 L (25-40) % [place] % (Auto) 9.4 (3-14) % Eos % (Auto) 1.7 L (2-4) % Baso % (Auto) 1.8 (0-2) % Neut # (Auto) 6200 (3985-1355) /uL Lymph # (Auto) 2500 (9472-7981) /uL [place] # (Auto) 900 (0-900) /uL Eos # (Auto) 200 (0-450) /uL Baso # (Auto) 200 H (0-100) /uL Sodium 135 L (137-145) mmol/L Potassium 4.4 (3.4-5.1) mmol/L Chloride 104 (98-107) mmol/L Carbon Dioxide 22 (22-32) mmol/L BUN 26 H (7-17) mg/dL Creatinine 1.25 H (0.52-1.04) mg/dL Estimated GFR 46 L (>60) mL/min BUN/Creatinine Ratio 20.8 (6-22) Glucose 98 (80-110) mg/dL Calcium 9.2 (8.4-10.2) mg/dL Total Bilirubin 0.8 (0.2-1.3) mg/dL AST 131 H (14-36) IU/L ALT 112 H (<35) IU/L Alkaline Phosphatase 105 (38-126) U/L Total Creatine Kinase 36 (30-135) U/L Total Protein 6.2 L (6.3-8.2) g/dL Albumin 3.6 (3.5-5.0) g/dL Globulin 2.6 (1.7-4.1) g/dL Albumin/Globulin Ratio 1.4 (1.0-2.8) MDM Narrative Medical decision making narrative: CK is negative. Electrolytes are unremarkable. Low suspicion for rhabdo. Low suspicion for sepsis. This very well could be because of the statin that she is been on. It has just been 24 hours since her last dose. She feels much better after Toradol and pain medication. No indication for radiologic studies. She is now moving her extremities with minimal discomfort. Will discharge patient home and I suspect that her symptoms will improve over the next couple days. Discharge Plan Departure Patient Disposition: Home Clinical Impression: Generalized muscle ache Activity Restrictions/Additional Instructions: I suspect that your symptoms will improve over the next couple days. Be sure that you are drinking plenty of fluids. Use the pain medication sparingly and as needed when Tylenol and ibuprofen are not helpful. Contact your primary provider for a follow-up. Prescriptions: No Action albuterol sulfate [Proventil HFA] 90 mcg/actuation HFA aerosol inhaler 2 puff inhalation Q4-6H PRN (Reason: shortness of breath or wheezing) Qty: 8.5 0RF azithromycin 250 mg tablet See Rx Instructions .ROUTE .COMPLEX Qty: 6 0RF Rx Instructions: For 250 mg dose pack: take 500 mg today (day 1), then 250 mg for 4 days (days 2-5) prednisone 20 mg tablet 20 mg PO DAILY Qty: 5 0RF Rx Instructions: administer with food or milk furosemide [Lasix] 40 mg tablet 40 mg PO DAILY Qty: 5 0RF Referrals: Archie Torres, [Primary Care Provider] - Stand Alone Forms: Patient Portal/API
[2023-07-25 01:00] VITALS: PULSE 80; O2SAT 100
[2023-07-25] MEDS: KETOROLAC 30 MG/ML VIAL IV (01:09)
[2023-07-25] MEDS: HYDROCODONE/ACET 5/325 TABLET 1 TAB PO (01:10)
[2023-07-25 01:11] LABS: Add Manual Diff / Slide Review NO; Basophils Absolute Auto 200 /uL (0-100); Basophils Percent Auto 1.8 % (0-2); Eosinophils Absolute Auto 200 /uL (0-450); Eosinophils Percent Auto 1.7 % (2-4); Hematocrit 35.7 % (36-46); Hemoglobin 11.5 g/dL (12.0-16.0); Lymphocytes Absolute Auto 2500 /uL (1100-4500); Lymphocytes Percent Auto 24.8 % (25-40); Mean Corpuscular HGB Conc 32.1 % (30-36); Mean Corpuscular Hemoglobin 24.8 PG (26-34); Mean Corpuscular Volume 77.1 fL (80-100); Monocytes Absolute Auto 900 /uL (0-900); Monocytes Percent Auto 9.4 % (3-14); Neutrophils Absolute Auto 6200 /uL (1500-7000); Neutrophils Percent Auto 62.3 % (50-75); Platelet Count 217 X10^3/uL (150-400); Red Blood Cell Count 4.64 X10^6/uL (4.0-5.2); Red Cell Distribution Width 16.8 % (11.6-14.8); White Blood Cell Count 9.9 X10^3/uL (4.5-11.0)
[2023-07-25 01:15] VITALS: BP 129/81; PULSE 80; O2SAT 100
[2023-07-25 01:22] LABS: Alanine Aminotransferase 112 IU/L (<35); Albumin 3.6 g/dL (3.5-5.0); Albumin Globulin Ratio 1.4 (1.0-2.8); Alkaline Phosphatase 105 U/L (38-126); Aspartate Aminotransferase 131 IU/L (14-36); BUN Creatinine Ratio 20.8 (6-22); Bilirubin Total 0.8 mg/dL (0.2-1.3); Blood Urea Nitrogen 26 mg/dL (7-17); Calcium 9.2 mg/dL (8.4-10.2); Carbon Dioxide 22 mmol/L (22-32); Chloride 104 mmol/L (98-107); Creatine Kinase 36 U/L (30-135); Estimated Glomerular Filt Rate 46 mL/min (>60); Globulin 2.6 g/dL (1.7-4.1); Glucose 98 mg/dL (80-110); HEMOLYSIS < 15 (0-50); Potassium 4.4 mmol/L (3.4-5.1); Sodium 135 mmol/L (137-145); Total Protein 6.2 g/dL (6.3-8.2)
[2023-07-25 01:30] VITALS: BP 117/72; PULSE 80; O2SAT 99
[2023-07-25] MEDS: HYDROCODONE/ACET 5/325 PREPACK 1 BOTTLE MISC (01:51)
== END 2023-07-25 02:02 | disposition home or self-care (01) ==
PROVIDERS: Emergency Provider Emergency Medicine; PCP Internal Medicine
DX: M79.602 Pain in left arm (principal); M79.601 Pain in right arm
CPT/HCPCS: 36415; 80053; 82550; 85025; 96374; 99284; J1885

== ENCOUNTER 2023-07-28 05:44 | Emergency (ER) | payer MEDICARE, MEDICAID, SELFPAY ==
[2023-07-28] VITALS (16 sets, daily range): BP systolic 117–143; BP diastolic 68–101; PULSE 79–86; RESP 15–21; TEMP 36.9; O2SAT 57–100; BMI 23.8
--- NOTE | 2023-07-28 05:55 | ED.SOB ---
HPI - SOB/Dyspnea <Pilar Barnett DO - Last Filed: 07/28/23 22:04> General Chief Complaint: Chest Pain Stated Complaint: fluids, swollen up, chest pain Time Seen by Provider: 07/28/23 05:48 History of Present Illness HPI Narrative: Patient is a 73-year-old female history of COPD congestive heart failure presenting today with increasing shortness of breath and abdominal swelling. She reports that over the last couple of days she is noticed increased abdominal swelling. She is not felt well she feels like she is short of breath with exertion. She any chest pain nausea or vomiting. She is not had any fever or chills. She was evaluated here couple days ago with pain in her arms and legs, blood work was checked no electrolyte abnormality creatinine was up 1.25 previously 1.0. Ultimately discharged home without an explanation. She reports that due to the swelling and difficulty breathing she took 80 mg of Lasix prior to arrival she reports that she urinated. But still feels very swollen and well. Does not want to be swabbed for COVID she says every time she come she is swabbed. She is not received vaccine. Related Data Previous Rx's Medication Instructions Recorded albuterol sulfate 90 mcg/actuation 2 puff inhalation Q4-6H PRN 06/08/23 aerosol inhaler (Proventil HFA) shortness of breath or wheezing #8.5 grams azithromycin 250 mg tablet See Rx Instructions PO .COMPLEX #6 06/08/23 tabs furosemide 40 mg tablet (Lasix) 40 mg PO DAILY #5 tabs 07/05/23 prednisone 20 mg tablet 20 mg PO DAILY #5 tabs 07/05/23 nebulizer accessories #1 ea 07/28/23 nebulizer and compressor #1 ea 07/28/23 Allergies Allergy/AdvReac Type Severity Reaction Status Date / Time trazodone Allergy Suicidal Verified 07/05/23 10:59 ideation SSRI Allergy Suicidal Uncoded 07/05/23 10:59 Ideation Patient History <Pilar Barnett DO - Last Filed: 07/28/23 22:04> Medical History CHF (congestive heart failure) Atrial fibrillation Social History Smoking Status: Current every day smoker Smoking Status: Current every day smoker tobacco type: cigarettes alcohol intake frequency: 0-2 drinks per day Substance Use Type: does not use Exam <Pilar Barnett DO - Last Filed: 07/28/23 22:04> Initial Vital Signs Initial Vital Signs: Vital Signs Pulse Rate 84 07/28/23 05:50 Pulse Oximetry 57 L 07/28/23 05:50 GENERAL: Alert 73-year-old female HEENT: Head atraumatic,EOMI, pupils reactive, face symmetric, moist mucous membranes CARDIOVASCULAR: Regular rate and rhythm without murmurs, rubs or gallops. RESPIRATORY: Breath sounds equal bilaterally, no wheezes rales or rhonchi. No conversational dyspnea ABDOMEN: Soft, nontender. Normoactive bowel sounds all 4 quadrants. No guarding or rebound. : No CVA tenderness EXTREMITIES: Normal range of motion, no clubbing or edema. Neurovascularly intact No peripheral edema she does have some obvious swelling and her abdomen and vaginal region NEUROLOGICAL: Alert and oriented x4.Normal gait and speech SKIN: Warm, dry, no laceration, no petechiae, no rashes or lesions. <Estrella Momin, DO - Last Filed: 07/28/23 18:33> Initial Vital Signs Initial Vital Signs: Vital Signs Pulse Rate 84 07/28/23 05:50 Pulse Oximetry 57 L 07/28/23 05:50 Course <Pilar Barnett DO - Last Filed: 07/28/23 22:04> Orders Ordered: Discontinued Medications Albuterol/Ipratropium (Albuterol/Ipratropium 3 Ml Ampul) 3 ml INH NOW ONE Stop: 07/28/23 05:57 Last Admin: 07/28/23 06:07 Dose: 3 ml Documented By: FRANDY Vital Signs Vital signs: Vital Signs - 8 hr 07/28/23 05:50 07/28/23 05:53 07/28/23 05:53 Temperature Pulse Rate 84 84 Respiratory Rate 15 Blood Pressure 135/96 H Pulse Oximetry 57 L 100 Oxygen Delivery Method 07/28/23 05:58 07/28/23 06:00 07/28/23 06:00 Temperature 98.5 F Pulse Rate 86 80 Respiratory Rate 20 17 Blood Pressure 135/96 H 143/68 H Pulse Oximetry 100 100 Oxygen Delivery Method Room Air 07/28/23 06:07 07/28/23 06:30 07/28/23 06:30 Temperature Pulse Rate 80 80 Respiratory Rate 20 20 Blood Pressure 142/101 H Pulse Oximetry 100 100 Oxygen Delivery Method Room Air 07/28/23 06:33 07/28/23 06:33 07/28/23 07:00 Temperature Pulse Rate 80 Respiratory Rate 18 Blood Pressure 119/68 124/68 Pulse Oximetry 99 Oxygen Delivery Method 07/28/23 07:00 07/28/23 07:30 07/28/23 07:30 Temperature Pulse Rate 80 80 Respiratory Rate 16 16 Blood Pressure 125/69 Pulse Oximetry 97 97 Oxygen Delivery Method 07/28/23 08:00 07/28/23 08:00 07/28/23 08:21 Temperature Pulse Rate 80 Respiratory Rate 18 Blood Pressure 120/68 133/75 Pulse Oximetry 98 Oxygen Delivery Method Room Air 07/28/23 08:21 07/28/23 08:30 07/28/23 08:30 Temperature Pulse Rate 81 79 Respiratory Rate 17 15 Blood Pressure 123/75 Pulse Oximetry 96 98 Oxygen Delivery Method 07/28/23 09:00 07/28/23 09:00 Temperature Pulse Rate 79 Respiratory Rate 16 Blood Pressure 131/75 Pulse Oximetry 98 Oxygen Delivery Method <Estrella Momin, - Last Filed: 07/28/23 18:33> Orders Ordered: Discontinued Medications Albuterol/Ipratropium (Albuterol/Ipratropium 3 Ml Ampul) 3 ml INH NOW ONE Stop: 07/28/23 05:57 Last Admin: 07/28/23 06:07 Dose: 3 ml Documented By: FRANDY Vital Signs Vital signs: Vital Signs - 8 hr 07/28/23 05:50 07/28/23 05:53 07/28/23 05:53 Temperature Pulse Rate 84 84 Respiratory Rate 15 Blood Pressure 135/96 H Pulse Oximetry 57 L 100 Oxygen Delivery Method 07/28/23 05:58 07/28/23 06:00 07/28/23 06:00 Temperature 98.5 F Pulse Rate 86 80 Respiratory Rate 20 17 Blood Pressure 135/96 H 143/68 H Pulse Oximetry 100 100 Oxygen Delivery Method Room Air 07/28/23 06:07 07/28/23 06:30 07/28/23 06:30 Temperature Pulse Rate 80 80 Respiratory Rate 20 20 Blood Pressure 142/101 H Pulse Oximetry 100 100 Oxygen Delivery Method Room Air 07/28/23 06:33 07/28/23 06:33 07/28/23 07:00 Temperature Pulse Rate 80 Respiratory Rate 18 Blood Pressure 119/68 124/68 Pulse Oximetry 99 Oxygen Delivery Method 07/28/23 07:00 07/28/23 07:30 07/28/23 07:30 Temperature Pulse Rate 80 80 Respiratory Rate 16 16 Blood Pressure 125/69 Pulse Oximetry 97 97 Oxygen Delivery Method 07/28/23 08:00 07/28/23 08:00 07/28/23 08:21 Temperature Pulse Rate 80 Respiratory Rate 18 Blood Pressure 120/68 133/75 Pulse Oximetry 98 Oxygen Delivery Method Room Air 07/28/23 08:21 07/28/23 08:30 07/28/23 08:30 Temperature Pulse Rate 81 79 Respiratory Rate 17 15 Blood Pressure 123/75 Pulse Oximetry 96 98 Oxygen Delivery Method 07/28/23 09:00 07/28/23 09:00 Temperature Pulse Rate 79 Respiratory Rate 16 Blood Pressure 131/75 Pulse Oximetry 98 Oxygen Delivery Method MDM - SOB/Dyspnea <Pilar Barnett, - Last Filed: 07/28/23 22:04> Lab Data 07/28/23 05:58 07/28/23 05:58 Labs: Lab Results 07/28/23 07/28/23 07/28/23 Range/Units 05:58 08:05 08:25 WBC 9.1 (4.5-11.0) X10^3/uL RBC 4.43 (4.0-5.2) X10^6/uL Hgb 11.0 L (12.0-16.0) g/dL Hct 33.6 L (36-46) % MCV 75.7 L (80-100) fL MCH 24.8 L (26-34) PG MCHC 32.7 (30-36) % RDW 17.4 H (11.6-14.8) % Plt Count 210 (150-400) X10^3/uL Neut % (Auto) 58.5 (50-75) % Lymph % (Auto) 30.0 (25-40) % [place] % (Auto) 8.6 (3-14) % Eos % (Auto) 1.5 L (2-4) % Baso % (Auto) 1.4 (0-2) % Neut # (Auto) 5300 (8392-8416) /uL Lymph # (Auto) 2700 (2959-4356) /uL [place] # (Auto) 800 (0-900) /uL Eos # (Auto) 100 (0-450) /uL Baso # (Auto) 100 (0-100) /uL Sodium 137 (137-145) mmol/L Potassium 3.4 (3.4-5.1) mmol/L Chloride 102 (98-107) mmol/L Carbon Dioxide 27 (22-32) mmol/L BUN 27 H (7-17) mg/dL Creatinine 1.21 H (0.52-1.04) mg/dL Estimated GFR 48 L (>60) mL/min BUN/Creatinine Ratio 22.3 H (6-22) Glucose 94 (80-110) mg/dL Calcium 9.8 (8.4-10.2) mg/dL Total Bilirubin 1.1 (0.2-1.3) mg/dL AST 64 H (14-36) IU/L ALT 78 H (<35) IU/L Alkaline Phosphatase 86 (38-126) U/L Total Creatine Kinase 55 (30-135) U/L Troponin I 0.039 H 0.033 (0.01-0.034) ng/mL NT-Pro-B Natriuret Pep 33707 H (<125) pg/mL Total Protein 6.8 (6.3-8.2) g/dL Albumin 4.0 (3.5-5.0) g/dL Globulin 2.8 (1.7-4.1) g/dL Albumin/Globulin Ratio 1.4 (1.0-2.8) Lipase 138 (23-300) U/L Urine RBC None seen (0-5/HPF) Urine WBC None seen (0-5/HPF) Ur Squamous Epith Cells None seen (0-5/HPF) Urine Bacteria None seen (None) Ur Culture Indicated? Cult not indicated Urine Dip Bedside Urine Glucose Negative Bedside Urine Bilirubin - Negative Bedside Urine Ketone - Negative Urine Specific [place] 1.010 Bedside Urine Occult Blood - Negative Bedside Urine pH 6.0 Bedside Urine Protein - Negative Bedside Urine Urobilinogen - Negative Bedside Urine Nitrite - Negative Bedside Urine Leukocytes +/- 15 Esterase ECG Data Interpretation: Paced rhythm V2 who ST changes no Sgarbossa criteria PVC noted MDM Narrative Medical decision making narrative: Patient is 73-year-old female presents today with increasing swelling and shortness of breath. She is obviously swollen but took 80 mg of Lasix prior to arrival she is already urinated a couple times here [place] [address] troponin 0.039 she has been taking some Lasix at home foot unclear how compliant she is. She is not hypoxic she is having some shortness of breath but not tachypneic or tachycardic. Patient signed out to Dr. Momin to follow up on repeat troponin however Dr. Dailey did accept as long as troponin is stable. <Estrella Momin, DO - Last Filed: 07/28/23 18:33> Lab Data Labs: Lab Results 07/28/23 07/28/23 07/28/23 Range/Units 05:58 08:05 08:25 WBC 9.1 (4.5-11.0) X10^3/uL RBC 4.43 (4.0-5.2) X10^6/uL Hgb 11.0 L (12.0-16.0) g/dL Hct 33.6 L (36-46) % MCV 75.7 L (80-100) fL MCH 24.8 L (26-34) PG MCHC 32.7 (30-36) % RDW 17.4 H (11.6-14.8) % Plt Count 210 (150-400) X10^3/uL Neut % (Auto) 58.5 (50-75) % Lymph % (Auto) 30.0 (25-40) % [place] % (Auto) 8.6 (3-14) % Eos % (Auto) 1.5 L (2-4) % Baso % (Auto) 1.4 (0-2) % Neut # (Auto) 5300 (5938-0696) /uL Lymph # (Auto) 2700 (5267-5483) /uL [place] # (Auto) 800 (0-900) /uL Eos # (Auto) 100 (0-450) /uL Baso # (Auto) 100 (0-100) /uL Sodium 137 (137-145) mmol/L Potassium 3.4 (3.4-5.1) mmol/L Chloride 102 (98-107) mmol/L Carbon Dioxide 27 (22-32) mmol/L BUN 27 H (7-17) mg/dL Creatinine 1.21 H (0.52-1.04) mg/dL Estimated GFR 48 L (>60) mL/min BUN/Creatinine Ratio 22.3 H (6-22) Glucose 94 (80-110) mg/dL Calcium 9.8 (8.4-10.2) mg/dL Total Bilirubin 1.1 (0.2-1.3) mg/dL AST 64 H (14-36) IU/L ALT 78 H (<35) IU/L Alkaline Phosphatase 86 (38-126) U/L Total Creatine Kinase 55 (30-135) U/L Troponin I 0.039 H 0.033 (0.01-0.034) ng/mL NT-Pro-B Natriuret Pep 66058 H (<125) pg/mL Total Protein 6.8 (6.3-8.2) g/dL Albumin 4.0 (3.5-5.0) g/dL Globulin 2.8 (1.7-4.1) g/dL Albumin/Globulin Ratio 1.4 (1.0-2.8) Lipase 138 (23-300) U/L Urine RBC None seen (0-5/HPF) Urine WBC None seen (0-5/HPF) Ur Squamous Epith Cells None seen (0-5/HPF) Urine Bacteria None seen (None) Ur Culture Indicated? Cult not indicated Urine Dip Bedside Urine Glucose Negative Bedside Urine Bilirubin - Negative Bedside Urine Ketone - Negative Urine Specific [place] 1.010 Bedside Urine Occult Blood - Negative Bedside Urine pH 6.0 Bedside Urine Protein - Negative Bedside Urine Urobilinogen - Negative Bedside Urine Nitrite - Negative Bedside Urine Leukocytes +/- 15 Esterase ECG Data Interpretation: Paced rhythm V2 who ST changes no Sgarbossa criteria PVC noted Mank: EKG 2. Ventricular paced rhythm rate 81, QRS [address] QTC [address]. No acute ST changes. Patient has prior from earlier today which appears similar. MDM Narrative Medical decision making narrative: Patient is 73-year-old female presents today with increasing swelling and shortness of breath. She is obviously swollen but took 80 mg of Lasix prior to arrival she is already urinated a couple times [place] [address] troponin 0.039 she has been taking some Lasix at home foot unclear how compliant she is. She is not hypoxic she is having some shortness of breath but not tachypneic or tachycardic. Patient signed out to Dr. Momin to follow up on repeat troponin however Dr. Dailey did accept as long as troponin is stable. 07/28/23 [place]: Patient signed out to myself by Dr. Barnett. She would spoken with Dr. Cabrera who would like repeat troponin at 2 hour. if still indeterminate and not significantly trending upwards would accept. Repeat EKG was obtained contiguous showed a ventricularly paced rhythm with no other acute changes. Spoke with patient she states that she is supposed to move to the [facility] today or tomorrow. She would really like to not be admitted. She has not been hypoxic she is not particularly hypertensive or hypotensive. She has otherwise appropriate vitals. Troponin was trending down words she does not appear to be in fluid overload physically. She would prefer to go home with increase in her Lasix and follow-up. She states that they have been working on setting up follow-up for her move. We did discuss that she is been accepted by the hospitalist you are happy to keep her here overnight but she much prefers to be discharged. Discharge Plan Departure Patient Disposition: Home Clinical Impression: Congestive heart failure Instructions: DI for Heart Failure Activity Restrictions/Additional Instructions: It is recommended that you stay for observation for your congestive heart failure and diuresis. Your creatinine does appear elevated from earlier in June, it was 1.03 at that time today is 1.21 Your vitals here are appropriate today and a copy of your labs are included in your discharge paperwork. Please increase your Lasix from 20 mg daily to 40 mg daily x5 days. I would like for you to follow up for recheck sometime in the next week to make sure you are continuing to improve. Please return for fevers, new or worsening chest pain, shortness of breath, increasing swelling of your legs are abdomen, lightheadedness or passing out or other new or concerning changes. Prescriptions: New (DME) nebulizer accessories Kit See Rx Instructions .Route Qty: 1 0RF Rx Instructions: As directed (DME) nebulizer and compressor Device See Rx Instructions .Route Qty: 1 0RF Rx Instructions: As directed No Action albuterol sulfate [Proventil HFA] 90 mcg/actuation HFA aerosol inhaler 2 puff inhalation Q4-6H PRN (Reason: shortness of breath or wheezing) Qty: 8.5 0RF azithromycin 250 mg tablet See Rx Instructions .ROUTE .COMPLEX Qty: 6 0RF Rx Instructions: For 250 mg dose pack: take 500 mg today (day 1), then 250 mg for 4 days (days 2-5) prednisone 20 mg tablet 20 mg PO DAILY Qty: 5 0RF Rx Instructions: administer with food or milk furosemide [Lasix] 40 mg tablet 40 mg PO DAILY Qty: 5 0RF Referrals: Archie Torres DO [Primary Care Provider] - Stand Alone Forms: Patient Portal/API
--- NOTE | 2023-07-28 05:56 | DI.RAD.S_ITS ---
PROCEDURE: XR CHEST 1V INDICATIONS: short of breath TECHNIQUE: One view of the chest was acquired. COMPARISON: [facility], CT, CT ANGIO CHEST PE PROTOCOL, 07/05/2023, 12:35. [facility], CR, XR CHEST 1V, 07/05/2023, 10:56. FINDINGS: Surgical changes and devices: Left pacemaker with right atrial and right ventricular leads. Post median sternotomy. Left shoulder reverse arthroplasty. Lungs and pleura: Prominent pulmonary markings. Bilateral hazy opacity. Small left pleural effusion. No pneumothorax. Mediastinum: Mediastinal contours appear unchanged. Heart size is prominent. Bones and chest wall: No suspicious bony lesions. Overlying soft tissues appear unremarkable. IMPRESSION: Prominent pulmonary markings suspicious for pulmonary edema. Small left pleural effusion seen. This report is concordant with the overnight preliminary interpretation. Dictated by: Lowell Babb M.D. on 07/28/2023 at 7:42 Approved by: Lowell Babb M.D. on 07/28/2023 at 7:44
[2023-07-28 06:05] LABS: Add Manual Diff / Slide Review NO; Basophils Absolute Auto 100 /uL (0-100); Basophils Percent Auto 1.4 % (0-2); Eosinophils Absolute Auto 100 /uL (0-450); Eosinophils Percent Auto 1.5 % (2-4); Hematocrit 33.6 % (36-46); Lymphocytes Absolute Auto 2700 /uL (1100-4500); Mean Corpuscular HGB Conc 32.7 % (30-36); Mean Corpuscular Hemoglobin 24.8 PG (26-34); Mean Corpuscular Volume 75.7 fL (80-100); Monocytes Absolute Auto 800 /uL (0-900); Monocytes Percent Auto 8.6 % (3-14); Neutrophils Absolute Auto 5300 /uL (1500-7000); Neutrophils Percent Auto 58.5 % (50-75); Platelet Count 210 X10^3/uL (150-400); Red Blood Cell Count 4.43 X10^6/uL (4.0-5.2); Red Cell Distribution Width 17.4 % (11.6-14.8); White Blood Cell Count 9.1 X10^3/uL (4.5-11.0)
[2023-07-28] MEDS: ALBUTEROL/IPRATROPIUM 3 ML AMPUL INH (06:07)
[2023-07-28 06:19] LABS: Alanine Aminotransferase 78 IU/L (<35); Albumin Globulin Ratio 1.4 (1.0-2.8); Alkaline Phosphatase 86 U/L (38-126); Aspartate Aminotransferase 64 IU/L (14-36); BUN Creatinine Ratio 22.3 (6-22); Bilirubin Total 1.1 mg/dL (0.2-1.3); Blood Urea Nitrogen 27 mg/dL (7-17); Calcium 9.8 mg/dL (8.4-10.2); Carbon Dioxide 27 mmol/L (22-32); Chloride 102 mmol/L (98-107); Creatine Kinase 55 U/L (30-135); Estimated Glomerular Filt Rate 48 mL/min (>60); Globulin 2.8 g/dL (1.7-4.1); Glucose 94 mg/dL (80-110); HEMOLYSIS < 15 (0-50); Lipase 138 U/L (23-300); Potassium 3.4 mmol/L (3.4-5.1); Sodium 137 mmol/L (137-145); Total Protein 6.8 g/dL (6.3-8.2)
[2023-07-28 06:30] LABS: NT-proBNP (BNP-Adult 18+) 12700 pg/mL (<125); Troponin I 0.039 ng/mL (0.01-0.034)
--- NOTE | 2023-07-28 07:49 | PC.NURSE ---
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 However, she was unable to do so. after further investigation by rn & rt, zafar tx were sent to [facility] in [place] by pt's pcp. pt states that when she arrived she was having significant sob and experiencing upper cp that was not specific to any area on her chest that was from working hard to breathe. pt sating at 98% on room air, HR 80, and RR 17 and non-labored. pt denies sob or cp at this time and states that she feels better and does not have to work so hard for breathing after receiving nebulizer tx in the emergency dept. no edema noted in extremities. 1+ non-pitting edema noted on abd at this time.
[2023-07-28 08:31] LABS: Troponin I 0.033 ng/mL (0.01-0.034)
[2023-07-28 09:43] LABS: Bacteria Urine None Seen; Culture Indicated Urine Cult Not Indicated; RBC Urine None Seen (0-5/HPF); Squamous Epithelial Cell Urine None Seen (0-5/HPF); WBC Urine None Seen (0-5/HPF)
== END 2023-07-28 10:32 | disposition home or self-care (01) ==
PROVIDERS: Emergency Medicine; Emergency Provider Emergency Medicine; PCP Internal Medicine
DX: I50.9 Heart failure, unspecified (principal)
CPT/HCPCS: 36415; 71045; 80053; 81003; 81015; 82550; 83690; 83880; 84484; 85025; 93005; 94640; 99284